=== PATIENT | female | born 1985 | race Caucasian/White ===

== ENCOUNTER → 2021-12-18 | Outpatient (CLI) | payer OTHER ==
--- NOTE | 2021-12-18 10:32 | CT ---
EXAMINATION TYPE: CT ChestAbdPelvis wo con DATE OF EXAM: 12/18/2021 COMPARISON: None HISTORY: Secondary malignant neoplasm of brain CT DLP: 1102mGycm Unenhanced CT of the Chest, Abdomen and Pelvis Unenhanced CT of the chest ,abdomen and pelvis is performed. The lack of intravenous contrast limits evaluation of the solid and hollow viscera. Oral contrast: None CT Chest: LUNGS: There is left infrahilar mass density which may reflect neoplasm. Area measures approximately 4.2 x 2.2 cm. The lungs are otherwise clear. No evidence for pleural effusion. No additional nodules or masses seen. MEDIASTINUM: Thoracic aorta is of normal caliber. The heart is not enlarged. No evidence for media stinal mass or adenopathy. HILAR STRUCTURES: No evidence for mass. No hilar adenopathy is appreciated. OTHER: No significant abnormality. CONTRAST CT ABDOMEN AND PELVIS: LIVER/GB: Several hypoattenuating lesions are seen within the liver some of which do not appear to be compatible with cysts. There is a mass within the posterior segment right hepatic lobe measuring 3 .9 cm as well as an additional lesion measuring 2.3 cm within the medial segment left hepatic lobe in the lateral segment left hepatic lobe lesion measuring 1.2 cm. Additional probable cyst measuring 3. 6 cm within the posterior segment right hepatic lobe near the dome. Correlate for metastatic disease. The gallbladder surgically absent. Biliary tree is of normal caliber. PANCREAS: No inflammation. No distinct mass. SPLEEN: No splenic enlargement. No lesion seen. ADRENALS: No nodule. No thickening. KIDNEYS/BLADDER: No hydronephrosis. No nephrolithiasis. No disctinct renal mass. BOWEL: Normal appendix. Normal bowel caliber. No inflammation. GENITAL ORGANS: No gross abnormality. LYMPH NODES: No greater than 1cm abdominal or pelvic lymph nodes areappreciated. AORTA: No significant abnormality. OSSEOUS STRUCTURES: Sclerotic L4 lesion as well as smaller focal sclerotic lesions of L1 T11, T10 and T3. OTHER: No significant additional abnormality is seen. IMPRESSION: 1. Left infrahilar mass suspicious for neoplasm. Consider PET/CT and/or tissue diagnosis. 2. Multiple hepatic lesions suspicious for metastatic disease. 3. Sclerotic osseous lesions.
== END | disposition home or self-care (01) ==
LOC: RADCTMAIN 09:03
PROVIDERS: ATTEND Radiology Radiation Oncology
DX: C79.31 Secondary malignant neoplasm of brain (principal); C7A.00 Malignant carcinoid tumor of unspecified site; R91.8 Other nonspecific abnormal finding of lung field; K76.89 Other specified diseases of liver; M89.8X8 Other specified disorders of bone, other site
CPT/HCPCS: 71250; 74176

== ENCOUNTER → 2021-12-21 | Outpatient (CLI) | payer OTHER ==
--- NOTE | 2022-01-08 13:48 | MR ---
EXAMINATION TYPE: MR brain wo/w con DATE OF EXAM: 12/21/2021 COMPARISON: MR brain from outside institution 08/30/2021 HISTORY: C79.31 Secondary malignant neoplasm of brain TECHNIQUE: Multiplanar, multisequence images of the brain and brainstem is performed without and with IV contras t, utilizing 6.5 mL intravenous Gadavist . FINDINGS: Diffusion weighted images demonstrate no evidence of a recent infarct or other diffusion ab normality. There is no extra-axial fluid collection or significant change in white matter signal abn ormality. The ventricular system and cisternal spaces are normal in size and appearance. The brain volume is age appropriate, postop changes are again noted in the right temporal region, right tempora l lobe shows a focus of encephalomalacia similar to prior exam. Midline structures demonstrate normal morphology. The craniocervical junction appears within normal limits. Post contrast images demonstrate 2 punctate foci of increased signal on T1-weighted images w ithin the posterior limb of the internal capsule on the left measuring 3-4 millimeters axial image #8 9 and sagittal image #13 as well as in the region of the thalamus on the left, similar size, axial im age #82, lesions have grown in the interval. Within the inferior left occipital lobe there is an ryley tional focus, axial image 70 similar in size. Ring-enhancing lesion measuring 9 to 10 mm at the infer ior aspect of the occipital lobe is again noted. Nodular focus of enhancement left frontal lobe shows a similar appearance, axial image 95, there may be some minimal growth. Along the posterior parietal lobe on the left axial image 103, sagittal image 10 focal nodular area of enhancement measures appro ximately 9 mm x 6 mm which has grown in the interval. Punctate hyperintensity present at the convexit y on axial image 147 not seen definitively on prior exam along the cortex, additional lesion on axial image 129 anteriorly axial image #129 and sagittal image #17. Ring-enhancing focus along the dura an d tentorium on the right axial image 63 and sagittal image 28 Along the ventricular lining axial imag e 104 the right lateral ventricle there is a focus of enhancement. Anterior aspect of the right tempo ral lobe also shows a focus of increased signal measuring approximately 6 to 7 mm there is grown in t he interval. Focus of enhancement at the level tectum on the left was not seen on prior exam, left ce rebellar punctate focus axial image 39 on the left was not seen on prior, small focus in the right ce rebellar hemisphere axial image 39 is thought to have grown in the interval, focal increased T1 signa l. Right parietal lobe towards the convexity shows some focal enhancement and focal T1 signal were se en on prior. Right frontal lesion noted on axial image 84. Right frontal lesion on axial image 109 is more conspicuous than on prior. The dural venous sinuses appear patent. The visualized sinuses are c lear and the globes are intact. Inflammatory changes present within the mastoid air cells on the righ t as on prior exam. IMPRESSION: There has been progression of metastatic disease.
== END | disposition home or self-care (01) ==
LOC: RADMRIMAIN 12-06 15:36
PROVIDERS: ATTEND Radiology Radiation Oncology
DX: C79.31 Secondary malignant neoplasm of brain (principal)
CPT/HCPCS: 70553; A9585

== ENCOUNTER → 2022-01-09 | Outpatient (CLI) | payer OTHER ==
--- NOTE | 2022-01-10 10:00 | ECHOF ---
Referral Reason:Z01.818 MEASUREMENTS -------- HEIGHT: 152.4 cm WEIGHT: 67.1 kg BP: IVSd: 0.9 cm (0.6 - 1.1) LVIDd: 3.9 cm (3.9 - 5.3) LVPWd: 0.9 cm (0.6 - 1.1) IVSs: 1.2 cm LVIDs: 2.1 cm LVPWs: 1.6 cm LAESV Index (A-L): 21.81 ml/m Ao Diam: 3.2 cm (2.0 - 3.7) AV Cusp: 1.5 cm (1.5 - 2.6) LA Diam: 2.5 cm (2.7 - 3.8) MV EXCURSION: 20.499 mm (> 18.000) MV EF SLOPE: 134 mm/s (70 - 150) EPSS: 1.6 cm MV E Steven: 0.83 m/s MV DecT: 152 ms MV A Steven: 0.75 m/s MV E/A Ratio: 1.11 FINDINGS -------- This was a technically good study. The left ventricular size is normal. Left ventricular wall thickness is normal. Overall left vent ricular systolic function is normal with, an EF between 55 - 60 %. The diastolic filling pattern is normal for the age of the patient 9.92. The right ventricle is normal in size. The left atrial size is normal. The right atrial size is normal. The aortic valve is trileaflet and appears structurally normal. The mitral valve is normal. Mild mitral regurgitation is present. The tricuspid valve appears structurally normal. Mild tricuspid regurgitation present. Right vent ricular systolic pressure is normal at < 35 mmHg. There is no pulmonic regurgitation present. The aortic root size is normal. IVC Not well visulized. There is no pericardial effusion. CONCLUSIONS -------- 1. The left ventricular size is normal. 2. Left ventricular wall thickness is normal. 3. Overall left ventricular systolic function is normal with, an EF between 55 - 60 %. 4. The diastolic filling pattern is normal for the age of the patient 9.92 5. Mild mitral regurgitation is present. 6. Mild tricuspid regurgitation present. 7. There is no pericardial effusion. RN NEONATAL ICU: Alvina Huggins RDCS
== END | disposition home or self-care (01) ==
LOC: RADECHMAIN 14:34
PROVIDERS: ATTEND Internal Medicine Hematology & Oncology
DX: Z01.818 Encounter for other preprocedural examination (principal); I08.1 Rheumatic disorders of both mitral and tricuspid valves
CPT/HCPCS: 93306

== ENCOUNTER → 2022-02-05 | Outpatient (CLI) | payer OTHER ==
--- NOTE | 2022-02-05 14:11 | XR ---
Bilateral femur HISTORY: C7A.00 C78.7 C79.31 Frontal and lateral views are performed of both the left and right femur on a total of 8 images, no c omparisons Postop changes are noted to the right femur, there is an intramedullary ebony with side screws along th e proximal femur and distal femur. Bone mineralization is maintained, there is no fracture or disloca tion bilaterally. Left hip shows some remodeling the femoral head, hypertrophic change of the acetabulum, correlate to exclude acetabular femoral impingement. There is overlying artifact. IMPRESSION: Postop changes and additional findings above.
== END | disposition home or self-care (01) ==
LOC: RADXRMAIN 12:13
PROVIDERS: ATTEND Radiology Radiation Oncology
DX: C7A.00 Malignant carcinoid tumor of unspecified site (principal); C78.7 Secondary malignant neoplasm of liver and intrahepatic bile duct; C79.31 Secondary malignant neoplasm of brain

== ENCOUNTER → 2022-02-07 | Outpatient (CLI) | payer OTHER ==
--- NOTE | 2022-02-07 12:41 | XR ---
Right elbow and right humerus HISTORY: Elbow pain, pain for 2 days, metastatic disease 3 views of the right elbow, 2 views of the right humerus submitted No comparisons There is an sclerotic spherical mass in the medullary aspect of the proximal right humerus at the met adiaphyseal level measuring 2.4 cm in size. There is no evident associated soft tissue mass or endost eal scalloping. There is no fracture or dislocation. No evident elbow joint effusion. IMPRESSION: Indeterminate mass within the proximal right humerus, bone scan may be of benefit, differ ential includes metastatic disease.
== END | disposition home or self-care (01) ==
LOC: RADXRMAIN 11:42
PROVIDERS: ATTEND Registered Nurse Oncology
DX: C7A.8 Other malignant neuroendocrine tumors (principal); C79.51 Secondary malignant neoplasm of bone; B02.7 Disseminated zoster; Z71.3 Dietary counseling and surveillance

== ENCOUNTER → 2022-03-01 | Outpatient (CLI) | payer MEDICARE, OTHER ==
--- NOTE | 2022-03-01 17:22 | MR ---
EXAMINATION TYPE: MR brain wo/w con DATE OF EXAM: 03/01/2022 COMPARISON: MR brain 12/21/2021 HISTORY: Headache, neuroendocrine tumor. TECHNIQUE: Multiplanar, multisequence images of the brain and brainstem is performed without and with IV contras t, utilizing 7.5 mL intravenous Gadavist . FINDINGS: Diffusion weighted images demonstrate no evidence of a recent infarct or other diffusion ab normality. There is no extra-axial fluid collection or significant change white matter signal abnorm ality. The low signal at the level of the sylvian fissure on the right shows a similar appearance, t here is some associated surrounding hyperintensity on inversion recovery and T2-weighted sequences. T he ventricular system and cisternal spaces are normal in size and appearance. The brain volume is ag e appropriate. Midline structures demonstrate normal morphology. The craniocervical junction appears within normal limits. Post contrast images demonstrate ring enhancement present within the left posterior temporal lobe along the tentorium, axial image #8 series 602, stable. Punctate focus of enhancement near the tentorium on the left image #9 is somewhat less conspicuous possibly due to differences in technique, similarly punctate focus of enhancement in the region of the thalamus on the left is less conspicuou s but present. Left frontal white matter lesion is also less well seen on axial image #20 series 602 The dural venous sinuses appear patent. The visualized sinuses are showing mucosal disease within the ethmoid air cells and maxillary sinuses left greater than right, and the globes are intact. Inflamma tory change is present within the mastoid air cells on the right similar to prior exam. IMPRESSION: There are differences in technique, metastatic disease is somewhat less conspicuous on to day's exam.
== END | disposition home or self-care (01) ==
LOC: RADMRIMAIN 15:07
PROVIDERS: ATTEND Internal Medicine Hematology & Oncology
DX: C79.31 Secondary malignant neoplasm of brain (principal); R51.9 Headache, unspecified
CPT/HCPCS: 70553; A9585

== ENCOUNTER → 2022-05-02 | Outpatient (CLI) | payer MEDICARE, OTHER ==
--- NOTE | 2022-05-02 12:58 | CT ---
EXAMINATION TYPE: CT angio chest DATE OF EXAM: 05/02/2022 COMPARISON: CT dated 12/18/2021 HISTORY: chest pain, SOB CT DLP: 299.1 mGy.cm. Automated Exposure Control for Dose Reduction was Utilized. TECHNIQUE AND CONTRAST: CTA scan of the thorax is performed with IV Contrast, patient injected with 80cc mL of Isovue 370, pu lmonary embolism protocol. MIP Images are created on an independent workstation and reviewed. FINDINGS: Attenuated caliber of the left lower lobe pulmonary artery by the left infrahilar mass. No definite f illing defect within the pulmonary trunk, main pulmonary arteries, lobar and segmental branches to reardon ggest pulmonary embolism. Subsegmental branches are suboptimally assessed. The pulmonary trunk measur es 3.1 cm suggestive of pulmonary hypertension. No gross cardiomegaly. Infiltrating left hilar mass with extension along the anterior aspect of the left lower lobe and slig htly attenuated left lower lobe bronchus, slightly more prominent compared to the previous CT scan. P rominent bilateral interstitial lung markings with subtle scattered areas of groundglass opacities an d infiltration, with septal thickening in the left lower lobe. This could be related to mild pulmonar y edema however lymphangitic carcinomatosis cannot be excluded. Patent trachea and main bronchi. No pleural or pericardial effusion. Apparently more prominent hilar and mediastinal lymph nodes, difficult to compare to the previous unenhanced CT scan. Multiple variab le sized hepatic lesions, suboptimally assessed by this CT scan. Fecal loading the visualized portion of the colon. Scattered sclerotic foci within the visualized bones, possibly metastatic, please micki elate with bone scan results. IMPRESSION: No major central pulmonary embolism. Again noted is the left hilar mass with slightly prominent mediastinal and hilar lymph nodes associat ed with suspected hepatic and osseous metastatic lesions as described above. Recommend correlation wi th PET scan/bone scan results. Other findings as described above.
== END | disposition home or self-care (01) ==
LOC: RADCTMAIN 11:39
PROVIDERS: ATTEND Internal Medicine Hematology & Oncology
DX: R06.02 Shortness of breath (principal)
CPT/HCPCS: 71275; Q9967

== ENCOUNTER 2022-06-18 09:23 | Inpatient (IN) | payer MEDICARE, OTHER ==
[2022-06-18] MEDS ORDERED: IBUPROFEN 600 MG TAB PO STA (09:38)
[2022-06-18] MEDS ORDERED: ACETAMINOPHEN TAB 325 MG TAB PO STA (09:38)
--- NOTE | 2022-06-18 09:53 | ED ---
General Adult HPI - General Chief complaint: Upper Respiratory Infection Stated complaint: SOB fever Time Seen by Provider: 06/18/22 09:28 Source: patient, RN notes reviewed Mode of arrival: ambulatory Limitations: no limitations - History of Present Illness Initial comments: 36-year-old female presents emergency Department with chief complaint of fever. Patient was sent in by oncologist. Patient states that she has some sort of cancer she is unsure primary source past metastatic disease. Patient has some radiation the past is on oral medication filled in the room states that they're sherbets chemotherapy. Patient has meant to cough congestion mild nausea no shortness breath no chest pain patient has chronic pain issues from cancers on multiple medications. No sick contacts. - Related Data Home Medications Medication Instructions Recorded Confirmed Entrectinib [Rozlytrek] 600 mg PO DAILY 06/18/22 06/18/22 Omeprazole 40 mg PO DAILY 06/18/22 06/18/22 fentaNYL 75MCG/HR PATCH [Duragesic 1 patch TRANSDERM Q72H 06/18/22 06/18/22 75MCG/HR] oxyCODONE HCL [Oxycodone HCl] 40 mg PO Q4H 06/18/22 06/18/22 Allergies Allergy/AdvReac Type Severity Reaction Status Date / Time amoxicillin Allergy Rash/Hives Verified 06/18/22 13:37 Penicillins Allergy Rash/Hives Verified 06/18/22 13:37 Review of Systems ROS Statement: Those systems with pertinent positive or pertinent negative responses have been documented in the HPI. ROS Other: All systems not noted in ROS Statement are negative. Past Medical History Past Medical History: Cancer History of Any Multi-Drug Resistant Organisms: None Reported Past Surgical History: Cholecystectomy, Joint Replacement Additional Past Surgical History / Comment(s): Brain Past Psychological History: No Psychological Hx Reported Smoking Status: Never smoker Past Alcohol Use History: None Reported Past Drug Use History: None Reported General Exam Limitations: no limitations General appearance: alert, in no apparent distress Head exam: Present: atraumatic, normocephalic, normal inspection Eye exam: Present: normal appearance, PERRL, EOMI. Absent: scleral icterus, conjunctival injection, periorbital swelling ENT exam: Present: normal exam, normal oropharynx, mucous membranes moist Neck exam: Present: normal inspection. Absent: tenderness, meningismus, lymphadenopathy Respiratory exam: Present: normal lung sounds bilaterally. Absent: respiratory distress, wheezes, rales, rhonchi, stridor Cardiovascular Exam: Present: normal rhythm, tachycardia, normal heart sounds. Absent: systolic murmur, diastolic murmur, rubs, gallop, clicks GI/Abdominal exam: Present: soft, normal bowel sounds. Absent: distended, tenderness, guarding, rebound, rigid Course Vital Signs 06/18/22 06/18/22 09:25 09:33 Temperature 100 F H Pulse Rate 104 H Respiratory 22 18 Rate Blood Pressure 98/48 O2 Sat by Pulse 98 Oximetry Medical Decision Making - Medical Decision Making 36-year-old female presented for fever. Patient is on immunosuppressive medication patient will be admitted for IV antibiotics. Blood cultures, further evaluation. Patient's chest x-ray shows possible pneumonia negative COVID-19, negative influenza. Patient does have noted fever, leukocytosis. - Lab Data Result diagrams: 06/18/22 09:40 06/18/22 09:40 Lab Results 06/18/22 06/18/22 06/18/22 Range/Units 09:40 09:40 09:40 WBC 14.4 H (3.8-10.6) k/uL RBC 3.57 L (3.80-5.40) m/uL Hgb 11.3 L (11.4-16.0) gm/dL Hct 35.5 (34.0-46.0) % MCV 99.5 (80.0-100.0) fL MCH 31.7 (25.0-35.0) pg MCHC 31.8 (31.0-37.0) g/dL RDW 14.4 (11.5-15.5) % Plt Count 251 (150-450) k/uL MPV 7.3 Neutrophils % 91 % Lymphocytes % 3 % Monocytes % 5 % Eosinophils % 1 % Basophils % 0 % Neutrophils # 13.1 H (1.3-7.7) k/uL Lymphocytes # 0.4 L (1.0-4.8) k/uL Monocytes # 0.7 (0-1.0) k/uL Eosinophils # 0.1 (0-0.7) k/uL Basophils # 0.0 (0-0.2) k/uL Sodium 141 (137-145) mmol/L Potassium 4.7 (3.5-5.1) mmol/L Chloride 108 H (98-107) mmol/L Carbon Dioxide 27 (22-30) mmol/L Anion Gap 6 mmol/L BUN 15 (7-17) mg/dL Creatinine 0.98 (0.52-1.04) mg/dL Est GFR (CKD-EPI)AfAm 85 (>60 ml/min/1.73 sqM) Est GFR (CKD-EPI)NonAf 74 (>60 ml/min/1.73 sqM) Glucose 161 H (74-99) mg/dL Plasma Lactic Acid Sravan 1.2 (0.7-2.0) mmol/L Calcium 8.6 (8.4-10.2) mg/dL Total Bilirubin 0.3 (0.2-1.3) mg/dL AST 38 H (14-36) U/L ALT 22 (4-34) U/L Alkaline Phosphatase 147 H (38-126) U/L Total Protein 7.1 (6.3-8.2) g/dL Albumin 3.9 (3.5-5.0) g/dL Urine Color Urine Appearance (Clear) Urine pH (5.0-8.0) Ur Specific [place] (1.001-1.035) Urine Protein (Negative) Urine Glucose (UA) (Negative) Urine Ketones (Negative) Urine Blood (Negative) Urine Nitrite (Negative) Urine Bilirubin (Negative) Urine Urobilinogen (<2.0) mg/dL Ur Leukocyte Esterase (Negative) Urine RBC (0-5) /hpf Urine WBC (0-5) /hpf Ur Squamous Epith Cells (0-4) /hpf Urine Bacteria (None) /hpf Coronavirus (PCR) (Not Detectd) Influenza Type A RNA (Not Detectd) Influenza Type B (PCR) (Not Detectd) 06/18/22 06/18/22 06/18/22 Range/Units 09:40 11:25 14:21 WBC (3.8-10.6) k/uL RBC (3.80-5.40) m/uL Hgb (11.4-16.0) gm/dL Hct (34.0-46.0) % MCV (80.0-100.0) fL MCH (25.0-35.0) pg MCHC (31.0-37.0) g/dL RDW (11.5-15.5) % Plt Count (150-450) k/uL MPV Neutrophils % % Lymphocytes % % Monocytes % % Eosinophils % % Basophils % % Neutrophils # (1.3-7.7) k/uL Lymphocytes # (1.0-4.8) k/uL Monocytes # (0-1.0) k/uL Eosinophils # (0-0.7) k/uL Basophils # (0-0.2) k/uL Sodium (137-145) mmol/L Potassium (3.5-5.1) mmol/L Chloride (98-107) mmol/L Carbon Dioxide (22-30) mmol/L Anion Gap mmol/L BUN (7-17) mg/dL Creatinine (0.52-1.04) mg/dL Est GFR (CKD-EPI)AfAm (>60 ml/min/1.73 sqM) Est GFR (CKD-EPI)NonAf (>60 ml/min/1.73 sqM) Glucose (74-99) mg/dL Plasma Lactic Acid Sravan (0.7-2.0) mmol/L Calcium (8.4-10.2) mg/dL Total Bilirubin (0.2-1.3) mg/dL AST (14-36) U/L ALT (4-34) U/L Alkaline Phosphatase (38-126) U/L Total Protein (6.3-8.2) g/dL Albumin (3.5-5.0) g/dL Urine Color Light Yellow Urine Appearance Cloudy H (Clear) Urine pH 6.0 (5.0-8.0) Ur Specific [place] 1.007 (1.001-1.035) Urine Protein Negative (Negative) Urine Glucose (UA) Negative (Negative) Urine Ketones Negative (Negative) Urine Blood Negative (Negative) Urine Nitrite Negative (Negative) Urine Bilirubin Negative (Negative) Urine Urobilinogen <2.0 (<2.0) mg/dL Ur Leukocyte Esterase Negative (Negative) Urine RBC 1 (0-5) /hpf Urine WBC 3 (0-5) /hpf Ur Squamous Epith Cells 8 H (0-4) /hpf Urine Bacteria Occasional H (None) /hpf Coronavirus (PCR) Not Detected (Not Detectd) Influenza Type A RNA Not Detected (Not Detectd) Influenza Type B (PCR) Not Detected (Not Detectd) Disposition Clinical Impression: Pneumonia, Metastatic cancer Disposition: ADMITTED IP TO THIS HOSP Condition: Fair Referrals: None,Stated [Primary Care Provider] - 1-2 days Time of Disposition: 15:11
--- NOTE | 2022-06-18 10:17 | XR ---
EXAMINATION TYPE: XR chest 2V DATE OF EXAM: 06/18/2022 COMPARISON: None TECHNIQUE: PA and lateral views submitted. HISTORY: Cough and fever FINDINGS: Mediport catheter seen. No pneumothorax. There is bibasilar subsegmental atelectasis and mild coarsen ed interstitium. No pleural effusion. Degenerative changes of the spine. Surgical clips in the upper abdomen. IMPRESSION: 1. Basilar atelectasis or early infiltrate correlate clinically. 2. Coarsened interstitium may be related to reduced inspiration rather than bronchitis or interstitia l pneumonitis correlate clinically.
[2022-06-18 10:22] LABS: Basophils % (A) 0 %; Eosinophils # (A) 0.1 k/uL (0-0.7); Eosinophils % (A) 1 %; HCT 35.5 % (34.0-46.0); HGB 11.3 gm/dL (11.4-16.0); Lymphocytes # (A) 0.4 k/uL (1.0-4.8); Lymphocytes % (A) 3 %; MCH 31.7 pg (25.0-35.0); MCHC 31.8 g/dL (31.0-37.0); MCV 99.5 fL (80.0-100.0); Mean Platelet Volume 7.3; Monocytes # (A) 0.7 k/uL (0-1.0); Monocytes % (A) 5 %; Neutrophils # (A) 13.1 k/uL (1.3-7.7); Neutrophils % (A) 91 %; Platelet Count 251 k/uL (150-450); RBC 3.57 m/uL (3.80-5.40); RDW 14.4 % (11.5-15.5); WBC 14.4 k/uL (3.8-10.6)
[2022-06-18 10:39] LABS: Albumin 3.9 g/dL (3.5-5.0); Calcium 8.6 mg/dL (8.4-10.2); Potassium 4.7 mmol/L (3.5-5.1); Total Bilirubin 0.3 mg/dL (0.2-1.3); Total Protein 7.1 g/dL (6.3-8.2)
[2022-06-18] MEDS ORDERED: SODIUM CHLORIDE 0.9% 1,000 ML IV ONE ×2 (11:05→13:53)
[2022-06-18 14:54] LABS: Appearance,Urine Cloudy (Clear); Bacteria,Urine Occasional /hpf; Bilirubin,Urine Negative (Negative); Blood,Urine Negative (Negative); Color,Urine Light Yellow; Glucose,Urine (UA) Negative (Negative); Ketones,Urine Negative (Negative); Leukocyte Esterase,Urine Negative (Negative); Nitrite,Urine Negative (Negative); Protein,Urine Negative (Negative); RBC,Urine 1 /hpf (0-5); Specific Gravity,Urine 1.007 (1.001-1.035); Squamous Epithelial Cell,Urine 8 /hpf (0-4); Urobilinogen,Urine <2.0 mg/dL (<2.0); WBC,Urine 3 /hpf (0-5)
[2022-06-18] MEDS ORDERED: AZITHROMYCIN 500 MG in SODIUM CHLORIDE 0.9% 250 ML IVPB STA (15:08)
[2022-06-18] MEDS ORDERED: PNEUMONIA PROTOCOL UTILIZED 1 EACH MISC PO PRN (15:12)
--- NOTE | 2022-06-18 19:48 | P.HPIM ---
History of Present Illness H&P Date: 06/18/22 History of Presenting Illness: Patient is a very pleasant 36-year-old female with a past medical history of metastatic cancer of unclear origin currently under care of Dr. Grimaldo on Entrectinib. She presented to the emergency department as directed by her oncologist for a chief complaint of fever accompanied by mild nausea, occasional cough, and congestion. Patient denies having any dizziness, lightheadedness, chills, diaphoresis, chest pain, palpitations, shortness of breath, abdominal pain, vomiting, or experiencing any numbness/tingling/weakness/swelling in her extremities.she underwent full evaluation in the emergency department. She was found of leukocytosis with WBC count of 14.4 and normocytic normochromic anemia with hemoglobin of 11.3. Liver enzymes slightly elevated with AST of 38 and alkaline phosphatase of 147.urinalysis negative for infection. Covid PCR negative. Influenza A negative. Influenza B was also negative. chest x-ray revealing basilar atelectasis/early infiltrate with coarsened interstitium possibly related to bronchitis versus interstitial pneumonitis.patient started on IV antibiotics azithromycin and Rocephin. She has been admitted under services of consultation to oncology. Review of systems: Pertinent positives and negatives as discussed in HPI, a complete review of systems was performed and all other systems are negative. Physical exam: Vital signs reviewed and stable. General: Nontoxic, no distress and appears stated age. Derm: Skin warm and dry, normal coloration for ethnicity. Head: Atraumatic, normocephalic and symmetric. Eyes: EOMs intact, no lid lag, and anicteric sclera Mouth: no lip lesions, mucus membranes moist Cardiovascular: regular rate and rhythm with normal S1S2, no murmur, positive posterior tibial pulses bilaterally, and cap refill < 2 seconds. Lungs: Respirations even, regular, and unlabored on room air. Lungs CTA bilaterally, no rhonchi, no rales, no wheezing, and no accessory muscle usage. Abdominal: soft, nontender to palpation, no guarding, no appreciable organomegaly Ext: ROM intact. No gross muscle atrophy, no edema, no contractures Neuro: Speech clear, face symmetrical and CN II-XII grossly intact with no noted focal neuro deficits Psych: Alert and oriented to person, place, time, and situation. Appropriate and pleasant affect. Assessment and Plan of Care: Fever while actively undergoing chemotherapy Pneumonitis Metastatic cancer of unclear origin -Telemetry monitoring. -Monitor Pulse-oximetry -Duonebs as needed for SOB and/or wheezing -Incentive Spirometry -Oncology consulted -Antibiotics: azithromycin and Rocephin -Sputum culture The patient is admitted with an anticipated greater than 2 midnight stay for evaluation of fever, pneumonitis CODE STATUS: Full code DVT prophylaxis: Heparin Discussed with: Pt and RN Anticipated discharge date: clinical course Anticipated discharge place: home A total of 39 minutes was spent on the care of this complex patient more than 50% of the time was spent in counseling and care coordination. Past Medical History Past Medical History: Cancer History of Any Multi-Drug Resistant Organisms: None Reported Past Surgical History: Cholecystectomy, Joint Replacement Additional Past Surgical History / Comment(s): Brain Past Psychological History: No Psychological Hx Reported Smoking Status: Never smoker Past Alcohol Use History: None Reported Past Drug Use History: None Reported Medications and Allergies Home Medications Medication Instructions Recorded Confirmed Type Entrectinib [Rozlytrek] 600 mg PO DAILY 06/18/22 06/18/22 History Omeprazole 40 mg PO DAILY 06/18/22 06/18/22 History fentaNYL 75MCG/HR PATCH [Duragesic 1 patch TRANSDERM Q72H 06/18/22 06/18/22 History 75MCG/HR] oxyCODONE HCL [Oxycodone HCl] 40 mg PO Q4H 06/18/22 06/18/22 History Allergies Allergy/AdvReac Type Severity Reaction Status Date / Time amoxicillin Allergy Rash/Hives Verified 06/18/22 13:37 Penicillins Allergy Rash/Hives Verified 06/18/22 13:37 Physical Exam Vitals: Vital Signs Temp Pulse Resp BP Pulse Ox 06/18/22 15:44 97.1 F L 77 119/90 98 06/18/22 09:33 18 06/18/22 09:25 100 F H 104 H 22 98/48 98 Intake and Output 06/18/22 06/18/22 06/18/22 06:59 14:59 22:59 Other: Weight 81.647 kg Results CBC & Chem 7: 06/18/22 09:40 06/18/22 09:40 Labs: Abnormal Lab Results - Last 24 Hours (Table) 08/08/22 08/08/22 08/08/22 Range/Units 09:40 09:40 14:21 WBC 14.4 H (3.8-10.6) k/uL RBC 3.57 L (3.80-5.40) m/uL Hgb 11.3 L (11.4-16.0) gm/dL Neutrophils # 13.1 H (1.3-7.7) k/uL Lymphocytes # 0.4 L (1.0-4.8) k/uL Chloride 108 H (98-107) mmol/L Glucose 161 H (74-99) mg/dL AST 38 H (14-36) U/L Alkaline Phosphatase 147 H (38-126) U/L Urine Appearance Cloudy H (Clear) Ur Squamous Epith Cells 8 H (0-4) /hpf Urine Bacteria Occasional H (None) /hpf
[2022-06-18] MEDS: HEPARIN SODIUM,PORCINE/PF 5,000 UNIT/0.5 ML SYRINGE SQ SCH (23:50)
--- NOTE | 2022-06-19 08:30 | XR ---
EXAMINATION TYPE: XR chest 2V DATE OF EXAM: 06/19/2022 COMPARISON: 06/18/2022 TECHNIQUE: PA and lateral views submitted. HISTORY: Cough FINDINGS: Mediport catheter seen. No pneumothorax. There is bibasilar subsegmental atelectasis and mild coarsen ed interstitium. No pleural effusion. Degenerative changes of the spine. Surgical clips in the upper abdomen. IMPRESSION: 1. Basilar atelectasis or early infiltrate correlate clinically. Findings stable. 2. Coarsened interstitium may be related to reduced inspiration rather than bronchitis or interstitia l pneumonitis correlate clinically.
[2022-06-19] MEDS ORDERED: ACETAMINOPHEN TAB 325 MG TAB PO PRN (08:54)
[2022-06-19] MEDS: AZITHROMYCIN 500 MG TAB PO SCH (09:02)
[2022-06-19] MEDS: PANTOPRAZOLE 40 MG TABLET PO SCH (09:02)
[2022-06-19] MEDS: HEPARIN SODIUM,PORCINE/PF 5,000 UNIT/0.5 ML SYRINGE SQ SCH ×3 (09:03→23:32)
--- NOTE | 2022-06-19 18:09 | P.PN ---
Subjective Progress Note Date: 06/19/22 Hospital course: Patient is a very pleasant 36-year-old female with a past medical history of metastatic cancer of unclear origin currently under care of Dr. Grimaldo on Entrectinib. She presented to the emergency department as directed by her oncologist for a chief complaint of fever accompanied by mild nausea, occasional cough, and congestion. Patient denies having any dizziness, lightheadedness, chills, diaphoresis, chest pain, palpitations, shortness of breath, abdominal pain, vomiting, or experiencing any numbness/tingling/weakness/swelling in her extremities.she underwent full evaluation in the emergency department. She was found of leukocytosis with WBC count of 14.4 and normocytic normochromic anemia with hemoglobin of 11.3. Liver enzymes slightly elevated with AST of 38 and alkaline phosphatase of 147.urinalysis negative for infection. Covid PCR negative. Influenza A negative. Influenza B was also negative. chest x-ray revealing basilar atelectasis/early infiltrate with coarsened interstitium possibly related to bronchitis versus interstitial pneumonitis.patient started on IV antibiotics azithromycin and Rocephin. She has been admitted under services of consultation to oncology. Physical exam: Patient seen and fully evaluated at bedside this morning. Patient resting comfortably. Patient reports feeling fatigue with continued cough and congestion. Temperature high over the past 24 hours is 102.5F. Patient's lungs with diffuse rhonchi greater throughout right lobe. Repeat x-ray to be completed. Vital signs reviewed and stable. General: Nontoxic, no distress and appears stated age. Derm: Skin warm and dry, normal coloration for ethnicity. Head: Atraumatic, normocephalic and symmetric. Eyes: EOMs intact, no lid lag, and anicteric sclera Mouth: no lip lesions, mucus membranes moist Cardiovascular: regular rate and rhythm with normal S1S2, no murmur, positive posterior tibial pulses bilaterally, and cap refill < 2 seconds. Lungs: Respirations even, regular, and unlabored on room air. Lungs diffuse rhonchi with no rales, no wheezing, and no accessory muscle usage. Abdominal: soft, nontender to palpation, no guarding, no appreciable organomegaly Ext: ROM intact. No gross muscle atrophy, no edema, no contractures Neuro: Speech clear, face symmetrical and CN II-XII grossly intact with no noted focal neuro deficits Psych: Alert and oriented to person, place, time, and situation. Appropriate and pleasant affect. Assessment and Plan of Care: Fever while actively undergoing chemotherapy Pneumonitis Metastatic cancer of unclear origin Leukocytosis -Telemetry monitoring. -Monitor Pulse-oximetry -Duonebs as needed for SOB and/or wheezing -Incentive Spirometry -Oncology consulted -Antibiotics: azithromycin and Rocephin -Sputum culture pending -Blood culture showing no growth to date -Repeat chest x-ray CODE STATUS: Full code DVT prophylaxis: Heparin Discussed with: Pt and RN Anticipated discharge date: clinical course Anticipated discharge place: home A total of 37 minutes was spent on the care of this complex patient more than 50% of the time was spent in counseling and care coordination. Objective - Vital Signs Vital signs: Vital Signs Temp 99.7 F H 06/19/22 04:09 Pulse 104 H 06/19/22 04:09 Resp 18 06/19/22 04:09 BP 107/70 06/19/22 04:09 Pulse Ox 95 06/19/22 04:09 FiO2 Intake & Output 06/18/22 06/19/22 06/19/22 18:59 06:59 18:59 Intake Total 540 Balance 540 Weight 81.647 kg 81.647 kg Intake: Oral 540 Other: Voiding Method Toilet # Voids 1 - Labs CBC & Chem 7: 06/18/22 09:40 06/18/22 09:40 Labs: Abnormal Lab Results - Last 24 Hours (Table) 06/18/22 06/18/22 06/18/22 Range/Units 09:40 09:40 14:21 WBC 14.4 H (3.8-10.6) k/uL RBC 3.57 L (3.80-5.40) m/uL Hgb 11.3 L (11.4-16.0) gm/dL Neutrophils # 13.1 H (1.3-7.7) k/uL Lymphocytes # 0.4 L (1.0-4.8) k/uL Chloride 108 H (98-107) mmol/L Glucose 161 H (74-99) mg/dL AST 38 H (14-36) U/L Alkaline Phosphatase 147 H (38-126) U/L Urine Appearance Cloudy H (Clear) Ur Squamous Epith Cells 8 H (0-4) /hpf Urine Bacteria Occasional H (None) /hpf
--- NOTE | 2022-06-19 18:11 | P.CONS ---
History of Present Illness - Reason for Consult Consult date: 06/19/22 NET on treatment Requesting physician: Jarad Pulido - Chief Complaint PNA - History of Present Illness Miss Campbell is a very pleasant female pt of Dr. Jonatan Weiss who relocated to [place] earlier this year. 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 She also had a positive liver biopsy, resection of a brain tumor and tissue from cholecystectomy-ALL revealed same pathologic findings. She was treated with Somatulin/Sandostatin, Afinitor, Chemotherapy (Carboplatinum+Etoposide) and Afinitor. She also was on Sutent. Had R Hip arthroplasty 2nd to metastatic disease. 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 She did have some trouble initially on treatment-wrong dose, rash-was able to control SE and pt has been on 3 capsules most recently. She did have XRT to rt humerous in January. Treatment f/u dodatate PET scan in April showed much improvement in disease! Pt is currently admitted with T-max at home 103F, she noted cough, SOB, sputum production, no hemoptysis, sore throat. She is feeling better and breathing better since admit. She has not taked rozylotrek since Sat. No other physical c/o Review of Systems 10 point ROS is neg except as stated in HPI Past Medical History Past Medical History: Cancer History of Any Multi-Drug Resistant Organisms: None Reported Past Surgical History: Section, Cholecystectomy, Joint Replacement Additional Past Surgical History / Comment(s): Brain, 3x Past Anesthesia/Blood Transfusion Reactions: No Reported Reaction Past Psychological History: No Psychological Hx Reported Smoking Status: Former smoker Past Alcohol Use History: None Reported Additional Past Alcohol Use History / Comment(s): Pt states she started smoking when she was 10years old and stopped in 2019. Pt states she would smoke 1ppd Past Drug Use History: None Reported - Past Family History Mother Family Medical History: Cancer (breast cancer) Medications and Allergies Home Medications Medication Instructions Recorded Confirmed Type Entrectinib [Rozlytrek] 600 mg PO DAILY 06/18/22 06/18/22 History Omeprazole 40 mg PO DAILY 06/18/22 06/18/22 History fentaNYL 75MCG/HR PATCH [Duragesic 1 patch TRANSDERM Q72H 06/18/22 06/18/22 History 75MCG/HR] oxyCODONE HCL [Oxycodone HCl] 40 mg PO Q4H 06/18/22 06/18/22 History Allergies Allergy/AdvReac Type Severity Reaction Status Date / Time amoxicillin Allergy Rash/Hives Verified 06/18/22 13:37 Penicillins Allergy Rash/Hives Verified 06/18/22 13:37 Physical Exam Vitals: Vital Signs Temp Pulse Pulse Resp BP BP Pulse Ox 06/19/22 04:09 99.7 F H 104 H 18 107/70 95 06/18/22 21:23 98.9 F 92 18 124/77 96 06/18/22 20:46 97.7 F 06/18/22 20:35 91 22 120/92 97 06/18/22 18:57 79 16 108/62 99 06/18/22 17:11 79 105/66 96 06/18/22 15:44 97.1 F L 77 119/90 98 06/18/22 09:33 18 06/18/22 09:25 100 F H 104 H 22 98/48 98 Intake and Output 06/18/22 06/19/22 06/19/22 22:59 06:59 14:59 Intake Total 540 Balance 540 Intake: Oral 540 Other: Voiding Method Toilet # Voids 1 Weight 81.647 kg - Constitutional General appearance: average body habitus, cooperative, no acute distress - EENT Eyes: anicteric sclerae, EOMI ENT: hearing grossly normal, normal oropharynx - Neck Neck: no lymphadenopathy - Respiratory congested cough Respiratory: bilateral: CTA, rhonchi (few scattered, bases) - Cardiovascular Rhythm: regular Heart sounds: normal: S1, S2 Abnormal Heart Sounds: no systolic murmur, no diastolic murmur, no rub, no S3 Gallop, no S4 Gallop, no click, no other leg Peripheral Edema: bilateral: None - Gastrointestinal General gastrointestinal: no absent bowel sounds, no decreased bowel sounds, no distended, no hepatomegaly, no hyperactive bowel sounds, normal bowel sounds, no organomegaly, no rigid, no scaphoid, soft, no splenomegaly, no tenderness, no umbilical hernia, no ventral hernia - Integumentary Integumentary: normal - Neurologic Neurologic: CNII-XII intact - Musculoskeletal Musculoskeletal: strength equal bilaterally - Psychiatric Psychiatric: A&O x's 3, appropriate affect, intact judgment & insight Results CBC & Chem 7: 06/18/22 09:40 06/18/22 09:40 Labs: Abnormal Lab Results - Last 24 Hours (Table) 06/18/22 06/18/22 06/18/22 Range/Units 09:40 09:40 14:21 WBC 14.4 H (3.8-10.6) k/uL RBC 3.57 L (3.80-5.40) m/uL Hgb 11.3 L (11.4-16.0) gm/dL Neutrophils # 13.1 H (1.3-7.7) k/uL Lymphocytes # 0.4 L (1.0-4.8) k/uL Chloride 108 H (98-107) mmol/L Glucose 161 H (74-99) mg/dL AST 38 H (14-36) U/L Alkaline Phosphatase 147 H (38-126) U/L Urine Appearance Cloudy H (Clear) Ur Squamous Epith Cells 8 H (0-4) /hpf Urine Bacteria Occasional H (None) /hpf Chest x-ray: report reviewed Assessment and Plan (1) Pneumonia Current Visit: Yes Status: Acute Priority: High Code(s): J18.9 - PNEUMONIA, UNSPECIFIED ORGANISM SNOMED Code(s): 350805118 (2) Neuroendocrine cancer Current Visit: Yes Status: Chronic Priority: Medium Code(s): C7A.8 - OTHER MALIGNANT NEUROENDOCRINE TUMORS SNOMED Code(s): 694160833601173 Plan: Pt being treated for CAP. She is doing better since admit Pt is rozylotrek for NTRK mutation. Hold until complete antibiotics. Cont f/u in Oncologists ofc as scheduled. Doctor attests: I performed a history and physical examination of this patient, developed impression and plan of care. Discussed with dictator. I agree with dictators note, documented as a scribe.
--- NOTE | 2022-06-20 07:56 | XR ---
EXAMINATION TYPE: XR chest 1V portable DATE OF EXAM: 06/20/2022 COMPARISON: 06/19/2022 HISTORY: Cough TECHNIQUE: Single frontal view of the chest is obtained. FINDINGS: Mediport catheter seen. No pneumothorax. There is bibasilar subsegmental atelectasis and m ild coarsened interstitium. No pleural effusion. Degenerative changes of the spine. Surgical clips in the upper abdomen. IMPRESSION: 1. Basilar atelectasis or early infiltrate correlate clinically. Findings stable. 2. Coarsened interstitium may be related to reduced inspiration, correlate clinically for bronchitis or interstitial pneumonitis correlate clinically.
[2022-06-20] MEDS: HEPARIN SODIUM,PORCINE/PF 5,000 UNIT/0.5 ML SYRINGE SQ SCH (08:35)
[2022-06-20] MEDS: AZITHROMYCIN 500 MG TAB PO SCH (08:35)
[2022-06-20] MEDS: PANTOPRAZOLE 40 MG TABLET PO SCH (08:35)
[2022-06-20 10:41] LABS: HCT 30.8 % (37.2-46.3); HGB 9.2 g/dL (12.0-15.0); MCH 31.5 pg (27.0-32.0); MCHC 29.9 g/dL (32.0-37.0); MCV 105.5 fL (80.0-97.0); Mean Platelet Volume 9.7 fL (9.5-12.2); NRBC Per 100 WBC 0 /100 WBCS (0.0-0.0); Platelet Count 173 X 10*3/uL (140-440); RBC 2.92 X 10*6/uL (4.10-5.20); RDW 14.7 % (11.5-14.5); WBC 9.15 X 10*3/uL (4.50-10.00)
--- NOTE | 2022-06-20 11:27 | CDI ---
Documentation Clarification Form Date: 06/20/2022 11:15:37 AM From: Cary Lim CCS, CCDS Admit Date: 06/18/2022 03:12:00 PM Patient Name: Princess Campbell Visit Number: [id number] Discharge Date: ATTENTION: The Clinical Documentation Specialists (CDI) and [facility] Coding Staff appreciate your assistance in clarifying documentation. Please respond to the clarification below the line at the bottom and electronically sign. The CDI & [facility] Coding staff will review the response and follow-up if needed. Please note: Queries are made part of the Legal Health Record. If you have any questions, please contact the author of this message via ITS. Dr. Peyton Richardson: Normocytic normochromic anemia is documented in the 06/18 History & Physical and the 06/19 Attending Progress Note without further specificity. Additional specificity regarding the Type and Acuity of Anemia is requested. History/Risk Factors per the 06/18 H/P: Metastatic Cancer unclear origin (Ovarian with metastasis to the Liver, Brain and bone per the Oncology Consult). Former smoker. Clinical indicators: Presented to the ED on 06/18 with SOB, fever and upper respiratory infection. Cancer patient with metastatic disease, last chemotherapy last week. Complaining of cough, congestion and mild SOB, chronic pain from cancer on multiple medications. Admit with Pneumonia and Metastatic Cancer. Hemoglobin: 06/18: 11.3. 06/20: 9.2. Hematocrit: 06/18: 35.5. 06/20: 30.8. Treatment 06/18: Blood cultures, Sputum culture, O2 2Lnc, po Tylenol 650 mg x1, po Motrin 600 mg x1, IV Na Chl 1,000 mls @ 999 mls/hr q1H x2, IV Azithromycin 500 m mls @ 250 mls/hr x1, IV Rocephin 50 mls @ 100 mls/hr x1, Fentanyl patch q72H. Home meds: Rozlytrek, Oxycodone HCL, Omeprazole, Fentanyl patch 75 mcg/hr. Please clarify the Type & Acuity of Anemia: [ ] Chronic blood loss anemia, please specify cause if known: [ ] Hemolytic anemia [ ] Drug induced anemia [ X ] Anemia due to malignancy [ ] Unable to determine [ ] Other, please specify: (Template Last Revised: December 2020) MTDD
--- NOTE | 2022-06-20 11:35 | CDI ---
Documentation Clarification Form Date: 06/20/2022 11:29:00 AM From: Cary OrtezLimOWEN thomas, CCDS Admit Date: 06/18/2022 03:12:00 PM Patient Name: Princess Campbell Visit Number: [id number] Discharge Date: ATTENTION: The Clinical Documentation Specialists (CDI) and [facility] Coding Staff appreciate your assistance in clarifying documentation. Please respond to the clarification below the line at the bottom and electronically sign. The CDI & [facility] Coding staff will review the response and follow-up if needed. Please note: Queries are made part of the Legal Health Record. If you have any questions, please contact the author of this message via ITS. Dr. Peyton Richardson: Per the 06/18 History & Physical, the patient is admitted with Fever while actively undergoing chemotherapy for Metastatic Cancer and Pneumonitis. History/Risk Factors per the 06/18 H/P: Metastatic Cancer unclear origin (Ovarian with metastasis to the Liver, Brain and bone per the Oncology Consult). Former smoker. Clinical indicators: Presented to the ED on 06/18 with SOB, fever and upper respiratory infection. Cancer patient with metastatic disease, last chemotherapy last week. Complaining of cough, congestion and mild SOB, chronic pain from cancer on multiple medications. Admit with Pneumonia and Metastatic Cancer. 06/18 VS: T 100, P 104, R 22 (sob, cough), BP 98/48, PO 98 RA. 06/18 LAB: WBC 14.4, RBC 3.57, Hgb 11.3, Neut 13.1, Lymphocytes 0.4; Chloride 108, Glucose 161, AST 38, Alkaline Phosphatase 147. 06/18 UA: Light yellow, Cloudy. Treatment 06/18: Blood cultures, Sputum culture, O2 2Lnc, po Tylenol 650 mg x1, po Motrin 600 mg x1, IV Na Chl 1,000 mls @ 999 mls/hr q1H x2, IV Azithromycin 500 m mls @ 250 mls/hr x1, IV Rocephin 50 mls @ 100 mls/hr x1, Fentanyl patch q72H. Home meds: Rozlytrek, Oxycodone HCL, Omeprazole, Fentanyl patch 75 mcg/hr. In your professional opinion, please clarify if these findings signify one of the following conditions: [ X ] Sepsis POA, please specify cause if known: [ ] Other, please specify [ ] Unable to determine (Template Last Reviewed: December 2020) JOHN
[2022-06-20 11:37] VITALS: BP 112/76; PULSE 74; RESP 15; TEMP 98.9
[2022-06-20 12:43] LABS: African American GFR (CKD) 89.1 (60.0-200.0); Albumin 3.7 g/dL (3.8-4.9); Albumin/Globulin Ratio 1.35 (1.60-3.17); Anion Gap 10.2 mmol/L (10.00-18.00); BUN/Creat Ratio 11.95 Ratio (12.00-20.00); Blood Urea Nitrogen 11.3 mg/dL (9.0-27.0); C Reactive Protein 9.5 mg/dL (0.00-0.80); Carbon Dioxide 25.1 mmol/L (20.0-27.5); Globulin 2.7 g/dL (1.6-3.3); Non-African American GFR(CKD) 76.9 (60.0-200.0); Potassium 4.8 mmol/L (3.5-5.5); Total Bilirubin 0.2 mg/dL (0.30-1.20); Total Protein 6.4 g/dL (6.2-8.2)
[2022-06-20 16:04] LABS: Reticulocyte % 1.16 % (0.10-1.80)
[2022-06-20 16:34] LABS: Ferritin 88.3 ng/mL (10.0-291.0); Iron 21 ug/dL (50-170); Total Iron Binding Capacity 332 ug/dL (228-460)
--- NOTE | 2022-06-20 17:03 | P.DS ---
Providers Date of admission: 06/18/22 15:12 Expected date of discharge: 06/20/22 Attending physician: Jose Mora MD Consults: 06/18/22 15:12 Consult Physician Routine Consulting Provider: Jonatan Weiss Consult Reason/Comments: Metastatic cancer Do you want consulting provider notified?: Yes Primary care physician: Stated None Hospital Course: Patient is a very pleasant 36-year-old female with a past medical history of metastatic cancer of unclear origin currently under care of Dr. Grimaldo on Entrectinib. She presented to the emergency department as directed by her oncologist for a chief complaint of fever accompanied by mild nausea, occasional cough, and congestion. Patient denies having any dizziness, lightheadedness, chills, diaphoresis, chest pain, palpitations, shortness of breath, abdominal pain, vomiting, or experiencing any numbness/tingling/weakness/swelling in her extremities.she underwent full evaluation in the emergency department. She was found of leukocytosis with WBC count of 14.4 and normocytic normochromic anemia with hemoglobin of 11.3. Liver enzymes slightly elevated with AST of 38 and alkaline phosphatase of 147. Urinalysis negative for infection. Covid PCR negative. Influenza A negative. Influenza B was also negative. Chest x-ray revealing basilar atelectasis/early infiltrate with coarsened interstitium possibly related to bronchitis versus interstitial pneumonitis. Patient started on IV antibiotics azithromycin and Rocephin. She has been admitted under services of consultation to oncology. Patient continued to show improvement during her hospitalization. Patient was seen and examined on June 20. Patient reported a significant improvement in her breathing. Home O2 eval was performed which showed that the patient did not require any supplemental oxygen. Patient stated she was comfortable being discharged home. She is prescribed 5 more days of Levaquin (to complete a total of 7 days antibiotics) along with albuterol inhaler. She is advised to follow-up with her PCP within 1-2 days of discharge. She is advised to follow-up with her oncologist Dr. Weiss on 06/25/2022. Patient advised to hold Rozylotrek until completion of antibiotics. She is also informed to come back if her symptoms worsened. Patient verbalized understanding of the plan. General: [non toxic], [no distress], [appears at stated age] Derm: [warm], [dry] Head: [atraumatic], [normocephalic], [symmetric] Eyes: [EOMI], [no lid lag], [anicteric sclera] Mouth: [no lip lesion], [mucus membranes moist] Cardiovascular: [S1S2 reg], [no murmur] Lungs: [Coarse breath sounds bilateral], [no rhonchi, no rales] , [no accessory muscle use] Ext: [no gross muscle atrophy], [no edema], [no contractures] Neuro: [no focal neuro deficits] Psych: [Alert], [oriented], [appropriate affect] Discharge Diagnosis: Community acquired pneumonia Acute hypoxic respiratory failure Fever with Leukocytosis Metastatic cancer of unclear origin This complex discharge took about 35 minutes to complete. Pertinent Studies: Chest X ray Patient Condition at Discharge: Stable Plan - Discharge Summary Discharge Rx Participant: No New Discharge Prescriptions: New Levofloxacin [Levaquin] 750 mg PO DAILY 5 Days #5 tab Albuterol Sulfate [Albuterol Sulfate Hfa] 1 puff PO Q4-6H PRN #8.5 gm PRN Reason: Shortness Of Breath Acetaminophen Tab [Tylenol] 650 mg PO Q6HR PRN tab PRN Reason: Mild Pain Or Fever > 100.5 Albuterol Inhaler [Ventolin Hfa Inhaler] 1 - 2 puff INHALATION RT-Q6H PRN #1 PRN Reason: Shortness Of Breath Continue oxyCODONE HCL [oxyCODONE HCL (IR)] 40 mg PO Q4H Omeprazole 40 mg PO DAILY fentaNYL 75MCG/HR PATCH [Duragesic 75MCG/HR] 1 patch TRANSDERM Q72H Discontinued Entrectinib [Rozlytrek] 600 mg PO DAILY Discharge Medication List Omeprazole 40 mg PO DAILY 06/18/22 [History] fentaNYL 75MCG/HR PATCH [Duragesic 75MCG/HR] 1 patch TRANSDERM Q72H 06/18/22 [History] oxyCODONE HCL [oxyCODONE HCL (IR)] 40 mg PO Q4H 06/18/22 [History] Acetaminophen Tab [Tylenol] 650 mg PO Q6HR PRN tab 06/20/22 [Rx] Albuterol Inhaler [Ventolin Hfa Inhaler] 1 - 2 puff INHALATION RT-Q6H PRN #1 06/20/22 [Rx] Albuterol Sulfate [Albuterol Sulfate Hfa] 1 puff PO Q4-6H PRN #8.5 gm 06/20/22 [Rx] Levofloxacin [Levaquin] 750 mg PO DAILY 5 Days #5 tab 06/20/22 [Rx] Follow up Appointment(s)/Referral(s): None,Stated [Primary Care Provider] - 1-2 days Jonatan Weiss MD [STAFF PHYSICIAN] - 06/25/22 9:30 am (This is for xgeva injection) Patient Instructions/Handouts: Community Acquired Pneumonia (DC) Activity/Diet/Wound Care/Special Instructions: HOLD ROZYLOTREK UNTIL ANTIBIOTICS ARE COMPLETED Please take all medications as advised. Follow up with your PCP within 1-2 days of discharge. Follow up with Oncology within 1 week of discharge. Come back to the ED or call 911 for worsening chest pain, shortness of breath, palpitations, lightheadedness, fever > 100.4F not relieved by tylenol. Discharge Disposition: HOME SELF-CARE
[2022-06-20 17:12] LABS: LDH 319 U/L (120-246)
--- NOTE | 2022-06-20 21:52 | P.PN ---
Subjective Progress Note Date: 06/20/22 Principal diagnosis: Fever T max 100, Hemoglobin decreased, increased macroytosis, dilution? Objective - Vital Signs Vital signs: Vital Signs Temp 98.9 F 06/20/22 11:23 Pulse 74 06/20/22 11:23 Resp 15 06/20/22 11:23 BP 112/76 06/20/22 11:23 Pulse Ox 96 06/20/22 11:23 FiO2 Intake & Output 06/19/22 06/20/22 06/20/22 18:59 06:59 18:59 Intake Total 720 Balance 720 Intake: Oral 720 Other: Voiding Method Toilet Toilet Toilet # Voids 2 3 - Exam - Constitutional General appearance: average body habitus, cooperative, no acute distress - EENT Eyes: anicteric sclerae, EOMI ENT: hearing grossly normal, normal oropharynx - Neck Neck: no lymphadenopathy - Respiratory congested cough Respiratory: bilateral: CTA, rhonchi (few scattered, bases) - Cardiovascular Rhythm: regular Heart sounds: normal: S1, S2 Abnormal Heart Sounds: no systolic murmur, no diastolic murmur, no rub, no S3 Gallop, no S4 Gallop, no click, no other leg Peripheral Edema: bilateral: None - Gastrointestinal General gastrointestinal: no absent bowel sounds, no decreased bowel sounds, no distended, no hepatomegaly, no hyperactive bowel sounds, normal bowel sounds, no organomegaly, no rigid, no scaphoid, soft, no splenomegaly, no tenderness, no umbilical hernia, no ventral hernia - Integumentary Integumentary: normal - Neurologic Neurologic: CNII-XII intact - Musculoskeletal Musculoskeletal: strength equal bilaterally - Psychiatric Psychiatric: A&O x's 3, appropriate affect, intact judgment & insight - Labs CBC & Chem 7: 06/20/22 06:07 06/20/22 06:07 Labs: Abnormal Lab Results - Last 24 Hours (Table) 06/20/22 06/20/22 Range/Units 06:07 06:07 RBC 2.92 L (4.10-5.20) X 10*6/uL Hgb 9.2 L (12.0-15.0) g/dL Hct 30.8 L (37.2-46.3) % MCV 105.5 H (80.0-97.0) fL MCHC 29.9 L (32.0-37.0) g/dL RDW 14.7 H (11.5-14.5) % BUN/Creatinine Ratio 11.95 L (12.00-20.00) Ratio Calcium 8.0 L (8.7-10.3) mg/dL Total Bilirubin 0.20 L (0.30-1.20) mg/dL AST 89 H (13-35) U/L Alkaline Phosphatase 129 H (41-126) U/L C-Reactive Protein 9.50 H (0.00-0.80) mg/dL Albumin 3.7 L (3.8-4.9) g/dL Albumin/Globulin Ratio 1.35 L (1.60-3.17) g/dL Microbiology - Last 24 Hours (Table) 06/18/22 09:54 Blood Culture - Preliminary Blood No Growth after 48 hours 06/18/22 09:37 Blood Culture - Preliminary Blood No Growth after 48 hours 06/19/22 04:23 Gram Stain - Preliminary Sputum Sputum Culture - Preliminary Assessment and Plan Plan: Chest x-ray: report reviewed Assessment and Plan (1) Pneumonia Current Visit: Yes Status: Acute Priority: High Code(s): J18.9 - PNEUMONIA, UNSPECIFIED ORGANISM SNOMED Code(s): 739407677 (2) Neuroendocrine cancer Current Visit: Yes Status: Chronic Priority: Medium Code(s): C7A.8 - OTHER MALIGNANT NEUROENDOCRINE TUMORS SNOMED Code(s): 655873735606800 Plan: Pt being treated for CAP. She is doing better since admit Pt is rozylotrek for NTRK mutation. Hold until complete antibiotics. Cont f/u in Oncologists ofc as scheduled. Worsening anemia: Anemia panel and cbc in am Monitor liver function
== END 2022-06-20 15:25 | disposition home or self-care (01) | DRG 871 ==
LOC: EC 09:23 → 5NMEDONC 15:12
PROVIDERS: ADMIT Student in an Organized Health Care Education/Training Program; ATTEND Student in an Organized Health Care Education/Training Program
DX: A41.9 Sepsis, unspecified organism (principal); J18.9 Pneumonia, unspecified organism; J96.01 Acute respiratory failure with hypoxia; J98.11 Atelectasis; D84.81 Immunodeficiency due to conditions classified elsewhere; C7B.8 Other secondary neuroendocrine tumors; C7A.098 Malignant carcinoid tumors of other sites; C7B.03 Secondary carcinoid tumors of bone; C7B.02 Secondary carcinoid tumors of liver; C7B.09 Secondary carcinoid tumors of other sites; D63.0 Anemia in neoplastic disease; R50.81 Fever presenting with conditions classified elsewhere; G89.3 Neoplasm related pain (acute) (chronic); Z20.822 Contact with and (suspected) exposure to COVID-19; Z96.641 Presence of right artificial hip joint; Z87.891 Personal history of nicotine dependence; Z80.3 Family history of malignant neoplasm of breast; Z88.0 Allergy status to penicillin; Z88.1 Allergy status to other antibiotic agents; Z90.49 Acquired absence of other specified parts of digestive tract; Z92.21 Personal history of antineoplastic chemotherapy; Z92.3 Personal history of irradiation; Z79.891 Long term (current) use of opiate analgesic; Z90.710 Acquired absence of both cervix and uterus
CPT/HCPCS: 36415; 71045; 71046; 80053; 81001; 81025; 82607; 82728; 82746; 83540; 83550; 83605; 83615; 84443; 85025; 85027; 85045; 86140; 87040; 87070; 87205; 87502; 87635; 96361; 96365; 96367; 99285

== ENCOUNTER → 2022-08-31 | Outpatient (CLI) | payer MEDICARE, OTHER ==
--- NOTE | 2022-08-31 12:22 | MR ---
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 Correlation to prior MR brain 03/01/2022 There is no restricted diffusion to suggest subacute ischemia. Encephalomalacia seen on prior exam in volving the right temporal lobe shows a similar appearance. There is some inflammatory change in the right temporal bone possibly related to prior surgery. Signal changes on inversion recovery T2-weight ed sequences are similar to prior. No interval change, no evident hemorrhage or hydrocephalus. There are expected vascular flow voids. Mild inflammatory change present within the ethmoid air cells. Orbi ts show symmetric appearance. Cerebellopontine angles, corpus callosum, pituitary, cervical medullary junction are stable. Abnormal signal seen within the posterior left brain along the tentorium showin g abnormal enhancement on prior exam shows a similar area of low signal along the inferior temporal l obe, serpiginous low signal on T1, T2 weighted sequences somewhat less well-defined and T1-weighted s equences, there is no contrast administration for this exam. IMPRESSION: Essentially stable compared to prior exam although there are differences in technique.
== END | disposition home or self-care (01) ==
LOC: RADMRIMAIN 10:35
PROVIDERS: ATTEND Radiology Radiation Oncology
DX: C79.31 Secondary malignant neoplasm of brain (principal)
CPT/HCPCS: 70551

== ENCOUNTER 2022-12-10 06:20 | Day surgery (SDC) | payer MEDICARE, OTHER ==
[2022-12-05 17:32] VITALS: BMI 5624.0
[~2022-12-10 06:20] MED LIST: ACETAMINOPHEN TAB 500 MG TAB PO PRN; HEPARIN SODIUM,PORCINE/PF 5,000 UNIT/0.5 ML SYRINGE SQ PRN
[2022-12-10] MEDS ORDERED: HYDROmorphone 0.5 MG/0.5 ML SYRINGE IVP PRN (06:39)
[2022-12-10] MEDS ORDERED: DEXAMETHASONE SOD PHOSPHATE 4 MG/ML 1 ML VIAL IV ONE (06:39)
[2022-12-10] MEDS ORDERED: LACTATED RINGERS 1,000 ML IV SCH (06:39)
[2022-12-10] MEDS ORDERED: ONDANSETRON 4 MG/2 ML VIAL IVP ONE (06:39)
[2022-12-10] MEDS ORDERED: LIDOCAINE 1% (10MG/ML) FOR IV START INTRADERMA PRN (06:39)
[2022-12-10] MEDS ORDERED: MIDAZOLAM 2 MG/2 ML VIAL IV PRN (06:39)
[2022-12-10 06:59] VITALS: RESP 16; TEMP 97.5
[2022-12-10] MEDS ORDERED: BUPIVACAINE (PF) 0.25% 30 ML VIAL SQ ONE ×3 (07:16→07:46)
[2022-12-10] MEDS ORDERED: MIDAZOLAM 2 MG/2 ML VIAL ONE (07:22)
[2022-12-10] MEDS ORDERED: fentaNYL (PF) 50 MCG/ML 2 ML AMP ONE (07:22)
[2022-12-10] MEDS ORDERED: LIDOCAINE 2% INJ 20 MG/ML (2 ML VIAL) ONE (07:22)
[2022-12-10] MEDS ORDERED: PROPOFOL 10 MG/ML 20 ML VIAL IV ONE (07:22)
--- NOTE | 2022-12-10 07:30 | P.GSHP ---
History of Present Illness H&P Date: 12/10/22 Chief Complaint: Metastatic cancer 37-year-old female recently treated for metastatic neuroendocrine tumor of unknown primary. Port cath was placed while she was living in [place]. She is no longer utilizing the port and would like it removed. Here for Port-A-Cath removal. Past Medical History Past Medical History: Cancer Additional Past Medical History / Comment(s): had generalized mets tx w/ chemo and radiation now CA present in bone,current port a cath has no blood flow History of Any Multi-Drug Resistant Organisms: None Reported Past Surgical History: Section, Cholecystectomy, Joint Replacement, Tubal Ligation Additional Past Surgical History / Comment(s): Brain tumor removed, 3x,rt hip replaced Past Anesthesia/Blood Transfusion Reactions: No Reported Reaction Additional Past Anesthesia/Blood Transfusion Reaction / Comment(s): no problems with prior blood transfusions Smoking Status: Former smoker - Past Family History Mother Family Medical History: Cancer Additional Family Medical History / Comment(s): breast CA Medications and Allergies Home Medications Medication Instructions Recorded Confirmed Type Omeprazole 40 mg PO QAM 06/18/22 12/05/22 History fentaNYL 75MCG/HR PATCH [Duragesic 1 patch TRANSDERM Q72H 06/18/22 12/05/22 History 75MCG/HR] oxyCODONE HCL [oxyCODONE HCL (IR)] 40 mg PO Q4H PRN 06/18/22 12/05/22 History Albuterol Inhaler [Ventolin Hfa 1 - 2 puff INHALATION RT-Q6H PRN #1 06/20/22 12/05/22 Rx Inhaler] Entrectinib [Rozlytrek] 200 mg PO 199912/05/22 12/05/22 History Levothyroxine Sodium [Synthroid] 50 mcg PO QAM 12/05/22 12/05/22 History Allergies Allergy/AdvReac Type Severity Reaction Status Date / Time amoxicillin Allergy Rash/Hives Verified 12/05/22 17:19 Penicillins Allergy Rash/Hives Verified 12/05/22 17:19 Surgical - Exam Vital Signs Temp Pulse Resp BP Pulse Ox 97.5 F L 77 16 119/75 98 12/10/22 06:52 12/10/22 06:52 12/10/22 06:52 12/10/22 06:52 12/10/22 06:52 Physical exam: General: Well-developed, well-nourished HEENT: Normocephalic, sclerae nonicteric Abdomen: Nontender, nondistended Extremities: No edema Neuro: Alert and oriented Assessment and Plan (1) Neuroendocrine cancer Narrative/Plan: Will proceed with Port-A-Cath removal of this time. Current Visit: No Status: Chronic Priority: Medium Code(s): C7A.8 - OTHER MALIGNANT NEUROENDOCRINE TUMORS SNOMED Code(s): 375819736967950
[2022-12-10] MEDS ORDERED: NALOXONE 0.4 MG/ML 1 ML VIAL IV PRN (08:18)
--- NOTE | 2022-12-10 08:19 | P.OP ---
Date of Procedure: 12/10/22 Procedure(s) Performed: PREOPERATIVE DIAGNOSIS: Metastatic neuroendocrine tumor POSTOPERATIVE DIAGNOSIS: Same PROCEDURE: Port-A-Cath removal SURGEON: Stanislaw EBL: Minimal ANESTHESIA: Sedation COMPLICATIONS: None OPERATIVE PROCEDURE: Patient was placed in the supine position. The patient was sedated per anesthesia that time. The chest was prepped and draped in the usual sterile fashion. The skin was localized with Marcaine solution. The previous incision was re-incised using a scalpel. The port was easily excised using accommodation of blunt dissection sharp dissection and electrocautery. The subcutaneous tissues were reapproximated using 3-0 Vicryl sutures. The skin was reapproximated using 4-0 Monocryl sutures. Skin glue was then applied. DISPOSITION: Stable to recovery room
[2022-12-10 09:43] VITALS: BP 124/67; PULSE 67
== END 2022-12-10 10:10 | disposition home or self-care (01) ==
LOC: OR 06:20
PROVIDERS: ATTEND Surgery
DX: C7A.8 Other malignant neuroendocrine tumors (principal); Z45.2 Encounter for adjustment and management of vascular access device; Z90.49 Acquired absence of other specified parts of digestive tract; Z98.51 Tubal ligation status; Z96.641 Presence of right artificial hip joint; Z87.891 Personal history of nicotine dependence; Z80.3 Family history of malignant neoplasm of breast; Z88.0 Allergy status to penicillin; Z98.891 History of uterine scar from previous surgery; Z79.899 Other long term (current) drug therapy
CPT/HCPCS: 81025; 36590; J2250; J1100; J0690; J2405; J3010; J2704; J1644; J2001

== ENCOUNTER → 2023-02-18 | Outpatient (CLI) | payer MEDICARE, OTHER ==
--- NOTE | 2023-02-18 21:41 | MR ---
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 The ventricles, basal cisterns and sulci overlying the cerebral convexities are within normal limits. There is no evidence for midline shift or mass effect. Acute intracranial hemorrhage or extra-axial collection is not evident. There are no abnormal areas of increased or decreased signal intensity within the brain parenchyma. Following contrast administration. Small ring-enhancing lesion adjacent to the left tentorium cerebel li measuring 7.5 mm is unchanged. No additional areas of abnormal enhancement seen. There is cranioto my change right parietal lobe. No recurrent mass or residual enhancement seen. The paranasal sinuses and mastoid air cells are well-aerated. IMPRESSION: 1. Small ring-enhancing lesion adjacent to the left tentorium is essentially unchanged. No new areas of pathologic enhancement seen. 2. Postoperative changes right parietal region.Evidence for recurrent or residual enhancement or lesi on.
== END | disposition home or self-care (01) ==
LOC: RADMRIMAIN 11:25
PROVIDERS: ATTEND Radiology Radiation Oncology
DX: C79.51 Secondary malignant neoplasm of bone (principal); C79.31 Secondary malignant neoplasm of brain; C7A.00 Malignant carcinoid tumor of unspecified site; Z92.3 Personal history of irradiation; Z98.890 Other specified postprocedural states
CPT/HCPCS: 70553; A9585

== ENCOUNTER 2023-08-10 12:31 | Emergency (ER) | payer MEDICARE, OTHER ==
[2023-08-10 12:58] VITALS: RESP 18
--- NOTE | 2023-08-10 12:58 | ED ---
General Adult HPI - General Source: patient, RN notes reviewed Mode of arrival: ambulatory Limitations: no limitations <Jarad Pulido - Last Filed: 08/10/23 12:57> - General Source: patient, RN notes reviewed, old records reviewed <Seun Holt - Last Filed: 08/10/23 23:32> - General Chief complaint: Urogenital Stated complaint: UTI, Back Pain Time Seen by Provider: 08/10/23 12:57 - History of Present Illness Initial comments: 37-year-old female presents emergency Department with chief complaint of flank pain. Patient states she has dysuria. Patient states that she believes she has a UTI. No reported fever. (Jarad Pulido) Patient is a 37-year-old female who presents emergency Department complaining of abdominal pain. He has been ongoing for multiple weeks. Seems to vary in location but it intermittently will affect her right lower back or right upper quadrant of her abdomen. Denies any radiation. Denies any nausea. Is concerned she may have a UTI. Denies any hematuria. Denies any vaginal discharge or bleeding. Does not believe she is . Denies any chest pain or shortness of breath. Denies any diarrhea or constipation. His no other acute complaints at this time. Presents for further evaluation at this time. Patient originally evaluated as a quick note. Urinalysis obtained in triage. Patient also states she intermittently will have some dysuria. (Seun Holt) - Related Data Home Medications Medication Instructions Recorded Confirmed Omeprazole 40 mg PO QAM 06/18/22 12/05/22 fentaNYL 75MCG/HR PATCH [Duragesic 1 patch TRANSDERM Q72H 06/18/22 12/05/22 75MCG/HR] oxyCODONE HCL [oxyCODONE HCL (IR)] 40 mg PO Q4H PRN 06/18/22 12/05/22 Entrectinib [Rozlytrek] 200 mg PO 199912/05/22 12/05/22 Levothyroxine Sodium [Synthroid] 50 mcg PO QAM 12/05/22 12/05/22 Previous Rx's Medication Instructions Recorded Albuterol Inhaler [Ventolin Hfa 1 - 2 puff INHALATION RT-Q6H PRN #1 06/20/22 Inhaler] Allergies Allergy/AdvReac Type Severity Reaction Status Date / Time amoxicillin Allergy Rash/Hives Verified 12/05/22 17:19 Penicillins Allergy Rash/Hives Verified 12/05/22 17:19 Review of Systems ROS Other: All systems not noted in ROS Statement are negative. <Jarad Pulido - Last Filed: 08/10/23 12:57> ROS Other: All systems not noted in ROS Statement are negative. <Seun Holt - Last Filed: 08/10/23 23:32> ROS Statement: Those systems with pertinent positive or pertinent negative responses have been documented in the HPI. Review of Systems: CONST: Denies fever EYES: Denies blurry vision ENT: Denies nasal congestion C/V: Denies Chest pain RESP: Denies shortness of breath GI: Endorses abdominal pain : Denies dysuria SKIN: Denies rash. MSK: Denies joint pain. 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,current port a cath has no blood flow History of Any Multi-Drug Resistant Organisms: None Reported Past Surgical History: Section, Cholecystectomy, Joint Replacement, Tubal Ligation Additional Past Surgical History / Comment(s): Brain tumor removed, 3x,rt hip replaced Past Anesthesia/Blood Transfusion Reactions: No Reported Reaction Additional Past Anesthesia/Blood Transfusion Reaction / Comment(s): no problems with prior blood transfusions Past Psychological History: No Psychological Hx Reported Smoking Status: Former smoker Past Alcohol Use History: None Reported Past Drug Use History: None Reported - Past Family History Mother Family Medical History: Cancer Additional Family Medical History / Comment(s): breast CA <Jarad Pulido - Last Filed: 08/10/23 12:57> General Exam Limitations: no limitations <Jarad Pulido - Last Filed: 08/10/23 12:57> <Seun Holt - Last Filed: 08/10/23 23:32> - General Exam Comments Initial Comments: Visual Physical Exam Vital signs reviewed General: Well-appearing, nontoxic, no acute distress. Head: Normocephalic, atraumatic Eyes: PERRLA, EOMI ENT: Airway patent Chest: Nonlabored breathing Skin: No visual rash, normal skin tone Neuro: Alert and oriented 3 Musculoskeletal: No gross abnormalities (Jarad Pulido) General: Appears in no acute distress. HEAD: Normal with no signs of head trauma. EYES: PERRLA, EOMI, conjunctiva normal, no discharge. ENT: Hearing grossly intact, normal oropharynx. RESPIRATORY: Clear breath sounds bilaterally. No wheezes, rales, or rhonchi. C/V: Regular rate and rhythm. S1 and S2 auscultated, peripheral pulses 2+ and intact throughout ABD: Soft, nondistended. Mildly tender to palpation in the right upper quadrant with no guarding. No peritoneal signs. No rebound tenderness. Middleton's sign negative. EXT: Normal range of motion, no obvious deformity SKIN: No rashes or lesions observed on exposed skin. NEURO: Alert and oriented 4. (Seun Holt) Course Vital Signs 08/10/23 08/10/23 08/10/23 12:50 16:30 17:00 Temperature Pulse Rate 88 71 81 Respiratory 18 18 18 Rate Blood Pressure 110/83 121/89 118/82 O2 Sat by Pulse 96 95 95 Oximetry 08/10/23 08/10/23 17:30 18:00 Temperature 97.9 F Pulse Rate 70 79 Respiratory 18 18 Rate Blood Pressure 129/97 131/93 O2 Sat by Pulse 96 95 Oximetry Medical Decision Making <Jarad Pulido - Last Filed: 08/10/23 12:57> - Lab Data Result diagrams: 08/10/23 16:19 08/10/23 16:19 <Seun Holt - Last Filed: 08/10/23 23:32> - Medical Decision Making I performed a quick note portion of this chart signed Jarad Pulido PA-C (Jarad Pulido) Was pt. sent in by a medical professional or institution ([facility], AUTOCAD OPERATOR, urgent care, hospital, or [facility]...) When possible be specific @ -No Did you speak to anyone other than the patient for history (EMS, parent, family, police, friend...)? What history was obtained from this source @ -No Did you review nursing and triage notes (agree or disagree)? Why? @ -I reviewed and agree with nursing and triage notes Were old charts reviewed (outside hosp., previous admission, EMS record, old EKG, old radiological studies, urgent care reports/EKG's, [facility] records)? Report findings @ -No old charts were reviewed Differential Diagnosis (chest pain, altered mental status, abdominal pain women, abdominal pain men, vaginal bleeding, weakness, fever, dyspnea, syncope, headache, dizziness, GI bleed, back pain, seizure, CVA, palpatations, mental health, musculoskeletal)? @ -Differential Abdominal Pain Women: Appendicitis, Cholecystitis, diverticulosis, ischemic bowel, pancreatitis, hepatitis, UTI, gastroenteritis, AAA, incarcerated hernia, bowel obstruction, constipation, inflammatory bowel, hepatitis, peptic ulcer disease, splenic infarction, perforated viscus, vulvitis, ovarian torsion, PID, kidney stone, placenta abruption, this is not meant to be an all-inclusive list EKG interpreted by me (3pts min.). @ -None done X-rays interpreted by me (1pt min.). @ -None done CT interpreted by me (1pt min.). @ -None done U/S interpreted by me (1pt. min.). @ -REVEALED NO EVIDENCE OF URETEROLITHIASIS OR NEPHROLITHIASIS. PATIENT haS A CHOLECYSTECTOMY. What testing was considered but not performed or refused? (CT, X-rays, U/S, labs)? Why? @ -None What meds were considered but not given or refused? Why? @ -None Did you discuss the management of the patient with other professionals (professionals i.e. , PA, AUTOCAD OPERATOR, lab, RT, psych nurse, manager social responsibility, pleating supervisor, teacher, armed custom protection officer, dependency case manager)? Give summary @ -No Was smoking cessation discussed for >3mins.? @ -No Was critical care preformed (if so, how long)? @ -No Were there social determinants of health that impacted care today? How? (Homel essness, low income, unemployed, alcoholism, drug addiction, transportation, low edu. Level, literacy, decrease access to med. care, long-term, rehab)? @ -No Was there de-escalation of care discussed even if they declined (Discuss DNR or withdrawal of care, Hospice)? DNR status @ -No What co-morbidities impacted this encounter? (DM, HTN, Smoking, COPD, CAD, Cancer, CVA, ARF, Chemo, Hep., AIDS, mental health diagnosis, sleep apnea, morbid obesity)? @ -None Was patient admitted / discharged? Hospital course, mention meds given and route, prescriptions, significant lab abnormalities, going to OR and other pertinent info. @ -Based on the patient's presentation and physical exam, I'm concerned for possible intra-abdominal process for the patient's current symptoms. Patient's exam is unremarkable. Urinalysis was already obtained and shows no evidence of UTI. We will obtain basic labs, as well as ultrasounds of the gallbladder as well as renals and bladder. Patient was in agreement this plan. She declines analgesic medications. She will be given IV fluids. No evidence of UTI and urinalysis. Vital signs within acceptable limits. Patient's laboratory studies returned within acceptable limits other than a nonspecific anemia. She is not . No evidence of UTI. Patient's ultrasound showed a cholecystectomy, and patient remembered that she did have her gallbladder out. No evidence of nephrolithiasis or ureteral lithiasis. Reevaluation come patient is feeling improved. We discussed results. She'll be discharged home at this time. She'll be given follow-up with a PCP. She was in agreement this plan. I instructed the patient to follow up with their PCP in the next 1-3 days. I provided contact information for follow up with [facility] PCPs. I explained that the patient should return to the emergency department if they experience any worsening symptoms. Strict return precautions were discussed with the patient. The patient expressed understanding of these instructions. I answered all questions that the patient had. The patient was discharged home in good condition with their prescriptions and follow up information. Undiagnosed new problem with uncertain prognosis? @ -No Drug Therapy requiring intensive monitoring for toxicity (Heparin, Nitro, Insulin, Cardizem)? @ -No Were any procedures done? @ -No Diagnosis/symptom? @ -Abdominal pain of unknown etiology Acute, or Chronic, or Acute on Chronic? @ -Acute on chronic Uncomplicated (without systemic symptoms) or Complicated (systemic symptoms)? @ -Uncomplicated Side effects of treatment? @ -none Exacerbation, Progression, or Severe Exacerbation] @ -no Poses a threat to life or bodily function? @ -no. (Seun Holt) - Lab Data Lab Results 08/10/23 08/10/23 08/10/23 Range/Units 13:08 16:19 16:19 WBC 5.3 (3.8-10.6) k/uL RBC 3.36 L (3.80-5.40) m/uL Hgb 11.0 L (11.4-16.0) gm/dL Hct 34.2 (34.0-46.0) % MCV 101.6 H (80.0-100.0) fL MCH 32.8 (25.0-35.0) pg MCHC 32.3 (31.0-37.0) g/dL RDW 14.8 (11.5-15.5) % Plt Count 248 (150-450) k/uL MPV 8.2 Neutrophils % 74 % Lymphocytes % 15 % Monocytes % 6 % Eosinophils % 3 % Basophils % 0 % Neutrophils # 3.9 (1.3-7.7) k/uL Lymphocytes # 0.8 L (1.0-4.8) k/uL Monocytes # 0.3 (0-1.0) k/uL Eosinophils # 0.2 (0-0.7) k/uL Basophils # 0.0 (0-0.2) k/uL Macrocytosis Slight Sodium 144 (137-145) mmol/L Potassium 5.1 (3.5-5.1) mmol/L Chloride 107 (98-107) mmol/L Carbon Dioxide 31 H (22-30) mmol/L Anion Gap 6 mmol/L BUN 14 (7-17) mg/dL Creatinine 1.11 H (0.52-1.04) mg/dL Est GFR (CKD-EPI)AfAm 73 (>60 ml/min/1.73 sqM) Est GFR (CKD-EPI)NonAf 63 (>60 ml/min/1.73 sqM) Glucose 113 H (74-99) mg/dL Calcium 9.5 (8.4-10.2) mg/dL Total Bilirubin 0.5 (0.2-1.3) mg/dL AST 49 H (14-36) U/L ALT 28 (4-34) U/L Alkaline Phosphatase 111 (38-126) U/L Total Protein 7.7 (6.3-8.2) g/dL Albumin 4.0 (3.5-5.0) g/dL HCG, Qual Not Detected Urine Color Yellow Urine Appearance Clear (Clear) Urine pH 6.5 (5.0-8.0) Ur Specific [place] 1.022 (1.001-1.035) Urine Protein Negative (Negative) Urine Glucose (UA) Negative (Negative) Urine Ketones Negative (Negative) Urine Blood Negative (Negative) Urine Nitrite Negative (Negative) Urine Bilirubin Negative (Negative) Urine Urobilinogen <2.0 (<2.0) mg/dL Ur Leukocyte Esterase Negative (Negative) Disposition <Jarad Pulido - Last Filed: 08/10/23 12:57> Is patient prescribed a controlled substance at d/c from ED?: No Time of Disposition: 17:48 <Seun Holt - Last Filed: 08/10/23 23:32> Clinical Impression: Abdominal pain of unknown etiology Disposition: HOME SELF-CARE Condition: Good Instructions (If sedation given, give patient instructions): Abdominal Pain (ED) Referrals: None,Stated [Primary Care Provider] - 1-2 days Forms: Area PCPs
[2023-08-10 14:29] LABS: Appearance,Urine Clear (Clear); Bilirubin,Urine Negative (Negative); Blood,Urine Negative (Negative); Color,Urine Yellow; Glucose,Urine (UA) Negative (Negative); Ketones,Urine Negative (Negative); Leukocyte Esterase,Urine Negative (Negative); Nitrite,Urine Negative (Negative); PH, Urine 6.5 (5.0-8.0); Protein,Urine Negative (Negative); Specific Gravity,Urine 1.022 (1.001-1.035); Urobilinogen,Urine <2.0 mg/dL (<2.0)
[2023-08-10] MEDS ORDERED: SODIUM CHLORIDE 0.9% 1,000 ML IV STA (16:12)
[2023-08-10 16:25] LABS: Basophils % (A) 0 %; Eosinophils # (A) 0.2 k/uL (0-0.7); Eosinophils % (A) 3 %; HCT 34.2 % (34.0-46.0); Lymphocytes # (A) 0.8 k/uL (1.0-4.8); Lymphocytes % (A) 15 %; MCH 32.8 pg (25.0-35.0); MCHC 32.3 g/dL (31.0-37.0); MCV 101.6 fL (80.0-100.0); Macrocytosis Slight; Mean Platelet Volume 8.2; Monocytes # (A) 0.3 k/uL (0-1.0); Monocytes % (A) 6 %; Neutrophils # (A) 3.9 k/uL (1.3-7.7); Neutrophils % (A) 74 %; Platelet Count 248 k/uL (150-450); RBC 3.36 m/uL (3.80-5.40); RDW 14.8 % (11.5-15.5); WBC 5.3 k/uL (3.8-10.6)
[2023-08-10 16:34] LABS: ALT 28 U/L (4-34); AST 49 U/L (14-36); African American GFR (CKD) 73 (>60 ml/min/1.73 sqM); Alkaline Phosphatase 111 U/L (38-126); Anion Gap 6 mmol/L; Blood Urea Nitrogen 14 mg/dL (7-17); Calcium 9.5 mg/dL (8.4-10.2); Carbon Dioxide 31 mmol/L (22-30); Chloride 107 mmol/L (98-107); Glucose 113 mg/dL (74-99); Non-African American GFR(CKD) 63 (>60 ml/min/1.73 sqM); Potassium 5.1 mmol/L (3.5-5.1); Sodium 144 mmol/L (137-145); Total Bilirubin 0.5 mg/dL (0.2-1.3); Total Protein 7.7 g/dL (6.3-8.2)
[2023-08-10 16:56] LABS: HCG,Qualitative Serum Not Detected
--- NOTE | 2023-08-10 17:41 | US ---
EXAMINATION TYPE: US abd limited kidneys/bladder DATE OF EXAM: 08/10/2023 COMPARISON: NONE CLINICAL INDICATION: Female, 37 years old with history of ruq abd pain, rt flank pain; Pain TECHNIQUE: Multiple sonographic images of the right upper quadrant, bilateral kidneys, and bladder ar e obtained. FINDINGS: EXAM MEASUREMENTS: Liver Length: 15.8 cm CBD: 0.5 cm Right Kidney: 9.2 x 4.4 x 4.5 cm Left Kidney: 9.2 x 4.8 x 4.4 cm Pancreas: wnl, tail obscured by overlying bowel gas Liver: Heterogeneous, limited views Gallbladder: Surgically absent CBD: wnl Right Kidney: No evidence of hydro, limited views due to large pt body habitus Left Kidney: No evidence of hydro, limited views due to large pt body habitus Bladder: Non-vis- pt voided GRAIN DRIER NOTES: Large pt body habitus, difficult exam IMPRESSION: 1. Limited evaluation secondary to large body habitus. 2. Cholecystectomy. 3. No biliary ductal dilatation. 4. No hydronephrosis or renal calcifications. 5. Limited evaluation of the pancreas and liver.
[2023-08-10 18:08] VITALS: BP 131/93; PULSE 79; TEMP 97.9
== END 2023-08-10 18:05 | disposition home or self-care (01) ==
LOC: EC 12:31
DX: R10.11 Right upper quadrant pain (principal); D64.9 Anemia, unspecified; Z90.49 Acquired absence of other specified parts of digestive tract; Z88.0 Allergy status to penicillin; Z87.891 Personal history of nicotine dependence
CPT/HCPCS: 36415; 76705; 76770; 80053; 81003; 84703; 85025; 96360; 99284

== ENCOUNTER 2024-04-12 19:35 | Outpatient (CLI) | payer MEDICARE | END 2024-04-13 05:55 | disposition home or self-care (01) | LOC: 3 N SLEEP 19:35 | PROVIDERS: ATTEND Internal Medicine Critical Care Medicine | DX: G47.33 Obstructive sleep apnea (adult) (pediatric) (principal); G47.10 Hypersomnia, unspecified; G47.36 Sleep related hypoventilation in conditions classified elsewhere; G47.52 REM sleep behavior disorder; E66.9 Obesity, unspecified; E03.9 Hypothyroidism, unspecified; Z68.42 Body mass index [BMI] 45.0-49.9, adult; Z79.890 Hormone replacement therapy; Z88.0 Allergy status to penicillin | CPT/HCPCS: 95811 ==

== ENCOUNTER → 2024-08-17 | Outpatient (CLI) | payer MEDICARE, OTHER ==
--- NOTE | 2024-08-17 15:41 | US ---
EXAMINATION TYPE: US kidneys/renal and bladder DATE OF EXAM: 08/17/2024 COMPARISON: 08/10/23 CLINICAL INDICATION: Female, 38 years old with history of R94.4 ABNORMAL RESULTS OF KIDNEY FUNCTION S TUDIES; abnormal kidney functions TECHNIQUE: Grayscale and color Doppler imaging of the bilateral kidneys and urinary bladder: FINDINGS: EXAM MEASUREMENTS: Right Kidney: 8.9 x 4.3 x 4.3 cm Left Kidney: 10.5 x 3.8 x 5.0 cm Right Kidney: No hydronephrosis, nephrolithiasis or masses seen Left Kidney: No hydronephrosis, nephrolithiasis or masses seen Bladder: mostly contracted and therefore limited in assessment. Bilateral Jets seen: no Renal cortical thickness and echogenicity is maintained. IMPRESSION: [facility], , 08/17/2024 3:39 PM
== END | disposition home or self-care (01) ==
LOC: RADUSWWP 14:26
PROVIDERS: ATTEND Family Medicine
DX: R94.4 Abnormal results of kidney function studies
CPT/HCPCS: 76770

== ENCOUNTER → 2024-08-17 | Outpatient (CLI) | payer MEDICARE ==
--- NOTE | 2024-08-17 15:39 | US ---
EXAMINATION TYPE: US groin RT DATE OF EXAM: 08/17/2024 COMPARISON: NONE CLINICAL INDICATION: Female, 38 years old with history of C7A.8 OTHER MALIGNANT NEUROENDOCRINE TUMORS ; Pt has felt a lump in rt groin for a few months TECHNIQUE: Right groined scanned in area of concern FINDINGS: Hypoechoic area with a fatty hilum seen measuring 2.6 x 1.3 x 1.1cm IMPRESSION: There is a hypoechoic nodule measuring 2.6 x 1.3 x 1.1 cm soft tissue nodule compatible with a lymph node. Nodule is borderline enlarged by measurement of short axis. [facility], , 08/17/2024 3:37 PM
== END | disposition home or self-care (01) ==
LOC: RADUSWWP 14:31
PROVIDERS: ATTEND Internal Medicine Hematology & Oncology
DX: C7A.8 Other malignant neuroendocrine tumors